=== PATIENT | female | born 1980 | race American Indian/Alaskan Native ===

== ENCOUNTER 2020-10-30 01:13 | Emergency (ER) | payer OTHER ==
[2020-10-30] MEDS ORDERED: IBUPROFEN 600 MG TAB PO ONE (01:33)
[2020-10-30] MEDS ORDERED: ACETAMINOPHEN 500 MG TAB PO ONE (01:33)
[2020-10-30] MEDS ORDERED: CYCLOBENZAPRINE 10 MG TAB PO ONE (01:33)
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
[2020-10-30 03:32] VITALS: BP 109/62
== END 2020-10-30 03:31 | disposition home or self-care (01) ==
LOC: ED 01:13
DX: G44.319 Acute post-traumatic headache, not intractable (principal); M62.838 Other muscle spasm; Z79.899 Other long term (current) drug therapy; V49.59XA Passenger injured in collision with other motor vehicles in traffic accident, initial encounter; Y92.410 Unspecified street and highway as the place of occurrence of the external cause; Y93.89 Activity, other specified; Y99.8 Other external cause status
CPT/HCPCS: 70450; 72125